=== PATIENT | female | born 1975 | race African-American/Black ===

== ENCOUNTER → 2016-10-05 | Day surgery (SDC) | payer OTHER ==
[~2016-10-05] VITALS: Ht 160 cm; Wt 79.4 kg
[~2016-10-05] MED LIST: CYCLOBENZAPRINE10 MG ORAL; Depo-Medrol 80mg Vial IARTIC ONE; IBUPROFEN600 MG ORAL
[2016-10-05 09:01] VITALS: BP 124/65
--- NOTE | 2016-10-05 09:04 | Pre-Procedure Note/Attestation ---
Pre-Procedure Note/Attestation Complete Prior to Procedure Planned Procedure: not applicable Procedure Narrative: Lumbar epidural steroid injection under fluoroscopic guidance, L5-S1 level Indications for Procedure Pre-Operative Diagnosis: lumbar disc displacement Attestation I attest that I discussed the nature of the procedure; its benefits; risks and complications; and alternatives (and the risks and benefits of such alternatives ), prior to the procedure, with the patient (or the patient's legal liability claims representative). I attest that, if there was a reasonable possibility of needing a blood transfusion, the patient (or the patient's legal liability claims representative) was given the [facility] standardized written summary, pursuant to the [place] Blood Safety Act ([place] Health and Safety Code # 1645, as amended). I attest that I re-evaluated the patient just prior to the surgery and that there has been no change in the patient's H&P, except as documented below: RODOLFO ARMSTRONG M.D. Oct 05, 2016 09:04
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
[2016-10-05 09:45] VITALS: BP 109/73
--- NOTE | 2016-10-05 12:09 | Brief Operative Note ---
Immediate Post Operative Note Operative Note Chief Complaint: Lower back pain Pre-op Diagnosis: lumbar disc displacement Procedure: L5-S1 interlaminar lumbar epidural steroid injection under fluoroscopic guidance. Post-op Diagnosis: lumbar disc displacement Post-op Diagnosis: same as pre-op Findings: consistent w/pre-op dx studies Surgeon: Rodolfo Monroe MD Robotic Machine Operator: none Additional Surgeons: none Anesthesiologist: none Anesthesia: local Specimen: none Complications: none Condition: stable Fluids: none Estimated Blood Loss: none Drains: none Packing: none Tourniquet time: 0 - min Implant(s) used?: RODOLFO Lazo M.D. Oct 05, 2016 12:09
--- NOTE | 2016-10-05 12:13 | Discharge Summary ---
Discharge Summary Hospital Course Date of Admission 10/05/16 Date of Discharge 10/05/16 Admitting Diagnosis Lumbar disc displacement Reason for Hospitalization: Short stay for an injection HPI Rusty Rendon is a 40 year old female who was admitted on for Lumbar Disc Displacement Consultations none Procedures L5-S1 interlaminar lumbar epidural steroid injection under fluoroscopic guidance. Hospital Course Short stay Discharge Condition Upon Discharge: stable Discharge Disposition Patient was discharged to home. Discharge Diagnoses: (1) Disc displacement, lumbar Discharge Instructions Discharge Instructions Follow up with: Rodolfo Armstrong MD Diet: regular Activity: okay to shower May Return to Work/School On: Oct 06, 2016 For Surgical Patients Dressing Care: may change May shower: Yes Contact your physician for: bleeding, pain, tenderness, yellowish discharge in the op. site RODOLFO ARMSTRONG M.D. Oct 05, 2016 12:13
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
== END | disposition home or self-care (01) ==
LOC: SUR 08:23
DX: M51.26 Other intervertebral disc displacement, lumbar region (principal)
CPT/HCPCS: 62323; 77003; 81025; J1040; 62322